=== PATIENT | female | born 1950 | race Caucasian/White ===

== ENCOUNTER 2021-07-15 10:01 | Outpatient (CLI) | payer OTHER | END 2021-07-15 16:44 | disposition home or self-care (01) | LOC: TOM 10:01 | PROVIDERS: ATTEND Psychiatry & Neurology Neurology | DX: G44.229 Chronic tension-type headache, not intractable (principal) ==

== ENCOUNTER 2021-07-20 10:20 | Outpatient (CLI) | payer OTHER | END 2021-07-20 16:13 | disposition home or self-care (01) | LOC: MRI 10:20 | PROVIDERS: ATTEND Psychiatry & Neurology Neurology | DX: M79.2 Neuralgia and neuritis, unspecified (principal) | CPT/HCPCS: 70551 ==

== ENCOUNTER 2023-05-28 08:59 | Outpatient (CLI) | payer OTHER | END 2023-05-28 09:01 | disposition home or self-care (01) | LOC: NUCLEAR 08:59 | DX: I87.2 Venous insufficiency (chronic) (peripheral) (principal) ==